=== PATIENT | female | born 1990 | race Hispanic/Latino ===

== ENCOUNTER 2021-02-25 08:37 | Emergency (ER) | payer MEDICAID, OTHER ==
[~2021-02-25] VITALS: Ht 167.6 cm; Wt 100.7 kg
[~2021-02-25 08:37] MED LIST: ALBU0.63 IH; PREN-146 PO
[2021-02-25 08:41] VITALS: BP 133/95
[2021-02-25] MEDS ORDERED: KETOROLAC 60 MG VIAL (30MG/ML) IM ONE (10:00)
[2021-02-25] MEDS ORDERED: ACETAMINOPHEN 500 MG TABLET PO ONE (10:00)
[2021-02-25] MEDS ORDERED: NAPR500T6 PO (10:51)
[2021-02-25] MEDS ORDERED: LIDOP TP (10:51)
[2021-02-25 12:03] VITALS: BP 114/71
== END 2021-02-25 12:05 | disposition home or self-care (01) ==
LOC: EDH 08:37
DX: S46.912A Strain of unspecified muscle, fascia and tendon at shoulder and upper arm level, left arm, initial encounter (principal); E66.9 Obesity, unspecified; J45.909 Unspecified asthma, uncomplicated; Z79.899 Other long term (current) drug therapy; Z79.1 Long term (current) use of non-steroidal anti-inflammatories (NSAID); Z98.890 Other specified postprocedural states; X58.XXXA Exposure to other specified factors, initial encounter; Y93.89 Activity, other specified; Y92.89 Other specified places as the place of occurrence of the external cause; Y99.8 Other external cause status
CPT/HCPCS: 71046; 73030; 96372; 99284; J1885